=== PATIENT | male | born 2000 ===

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

== ENCOUNTER 2019-08-20 09:04 | Emergency (ER) | payer BC, OTHER ==
[2019-08-20 09:18] VITALS: BP 123/70
--- NOTE | 2019-08-20 10:05 | UC ---
Neck Pain HPI - HPI Summary HPI Summary: Pt presents with c/o sudden onset of right side neck tender enlarged lymph nodes that began 1 week ago. Pt denies recent illness. Does report that he does have night sweats each night. Denies any easy bruising,, gum bleeding or unintended weight loss. - History of Current Complaint Chief Complaint: UCGeneralIllness Stated Complaint: RIGHT SIDE NECK SKIN Time Seen by Provider: 08/20/19 09:34 Hx Obtained From: Patient Mechanism Of Injury: No Known Trauma Timing: Constant Onset/Duration: Sudden Onset, Lasting Hours, Lasting Days, Still Present Pain Intensity: 4 Location: Discrete At: - right side of neck Character: Dull, Aching Aggravating Factors: Nothing, Other: - palpation Alleviating Factors: Nothing Associated Signs & Symptoms: Positive: Swelling - Risk Factors Meningitis Risk Factors: Negative - Allergies/Home Medications Allergies/Adverse Reactions: Allergies Allergy/AdvReac Type Severity Reaction Status Date / Time No Known Allergies Allergy Verified 08/20/19 09:17 PMH/Surg Hx/FS Hx/Imm Hx Previously Healthy: Yes - Surgical History Surgical History: None - Family History Known Family History: Positive: None Family History: no family history of of clotting or bleeding disorders - Social History Occupation: Employed Full-time Lives: With Family Alcohol Use: None Substance Use Type: None Smoking Status (MU): Current Some Day Smoker Type: Cigarettes Amount Used/How Often: socially Have You Smoked in the Last Year: No - Immunization History Vaccination Up to Date: Yes Review of Systems All Other Systems Reviewed And Are Negative: Yes Constitutional: Positive: Negative Skin: Positive: Negative Eyes: Positive: Negative ENT: Positive: Negative Respiratory: Positive: Negative Cardiovascular: Positive: Negative Gastrointestinal: Positive: Negative Genitourinary: Positive: Negative Motor: Positive: Negative Neurovascular: Positive: Negative Musculoskeletal: Positive: Myalgia - right side of neck Neurological: Positive: Negative Psychological: Positive: Negative Is Patient Immunocompromised?: No Physical Exam Triage Information Reviewed: Yes Appearance: Well-Appearing Vital Signs: Initial Vital Signs Temp 99.1 F 08/20/19 09:15 Pulse 76 08/20/19 09:15 Resp 13 08/20/19 09:15 BP 123/70 08/20/19 09:15 Pulse Ox 100 08/20/19 09:15 Vital Signs Reviewed: Yes Eye Exam: Normal ENT Exam: Normal Dental Exam: Normal Neck: Positive: Enlarged Nodes @ - right side, numerous, diffuse enlargement, c/ o tenderness Respiratory Exam: Normal Cardiovascular Exam: Normal Musculoskeletal Exam: Normal Neurological Exam: Normal Psychological Exam: Normal Skin Exam: Normal Diagnostics - Radiology No standard instances Radiology Interpretation Completed By: Radiologist - Word Processor Technician: Mary Ortega, ([id number]) Forestry Aide: ALPHONSE (ALPHONSE) Report Date: 2018 10:09:00 Report Status: Final ======= Start of Report Content Patient Name: KRISTINE VILLA Medical Record#: [id number] Ordering Physician: Shraddha Ruelas [employer] Acct.#: [id number] : 2000 Age: 19 Sex: M Location: [facility] Exam Date: 08/20/19 09 ADM Status: REG ER Order Information: US SOFT TISSUE HEAD OR NECK Accession Number: [id number] CPT : 07381 HISTORY: tender mass right side of neck COMPARISONS: None TECHNIQUE: Multiple transverse and longitudinal ultrasound images were obtained of the neck bilaterally using grayscale and color Doppler imaging. FINDINGS: There are multiple enlarged lymph nodes at the site of patient's symptoms posteriorly in the suboccipital region. The largest one the lymph nodes measures 1.26 x 0.51 x 1.3 Cm. The echotexture of the lymph nodes is hypoechoic. IMPRESSION: ENLARGED LYMPH NODES IN THE RIGHT SUBOCCIPITAL REGION. Recommendation: CT scan of the neck with IV contrast to evaluate the rest of the lymph nodes in the neck and any other pathology. _ <Electronically signed by Mary Ortega MD in [place]> 08/20/19 1005 Dictated By: Mary Ortega MD Dictated Date/Time: 08/20/19 1000 Transcribed Date/Time: 1000 Copy to: CC:Jack Stout MD; Shraddha Ruelas NP; David Gomes MD Imaging - [facility] Imaging - [facility] Imaging - [facility] [address] [address] ph [phone] ph [phone] ph ) End of Report Content Neck Pain Course/Dx - Course Course Of Treatment: I discussed the the ultra sound report with pt and recommended that he follow up with PCP immediately. - Differential Dx/Diagnosis Differential Dx/HQI/PQRI: Torticollis, Other - malignancy Provider Diagnosis: Lymphadenopathy of head and neck Discharge ED - Sign-Out/Discharge Documenting (check all that apply): Patient Departure All imaging exams completed and their final reports reviewed: Yes - Discharge Plan Condition: Stable Disposition: HOME Patient Education Materials: Lymphadenopathy (ED) Referrals: [facility] [Outside] - As Soon As Possible David Gomes MD [Primary Care Provider] - As Soon As Possible Additional Instructions: Please follow up with your PCP as soon as possible - Billing Disposition and Condition Condition: STABLE Disposition: Home
[2019-08-20 15:06] LABS: ABS Basophils 0.1 10^3/ul (0-0.2); ABS Eosinophils 0.3 10^3/ul (0-0.6); ABS Lymphocytes 2.3 10^3/ul (1.0-4.8); ABS Monocytes 0.4 10^3/ul (0-0.8); ABS Neutrophils 3.4 10^3/ul (1.5-7.7); Eosinophil % 4.5 %; Hematocrit 45 % (42-52); Hemoglobin 15.5 g/dL (14.0-18.0); Lymphocyte % 35.5 %; Mean Corpuscular HGB Conc 34 g/dL (31-36); Mean Corpuscular Hemoglobin 31 pg (27-31); Mean Corpuscular Volume 91 fL (80-94); Mean Platelet Volume 9.5 fL (7.4-10.4); Platelet Count 184 10^3/uL (150-450); Red Blood Count 4.95 10^6 /uL (4.18-5.48); Red Cell Distribution Width 12 % (10-15); White Blood Count 6.4 10^3/uL (3.5-10.8)
== END 2019-08-20 10:27 | disposition home or self-care (01) ==
LOC: UCCORT 09:04
DX: R59.1 Generalized enlarged lymph nodes (principal)
CPT/HCPCS: 36415; 76536; 85025; 99211; G0463